=== PATIENT | male | born 1930 | race Caucasian/White ===

== ENCOUNTER 2021-11-16 14:25 | Inpatient (IN) | payer MEDICARE ==
[~2021-11-16] VITALS: Ht 182.9 cm; Wt 75.7 kg
[2021-11-16 14:50] VITALS: BP 138/75
[2021-11-16] MEDS ORDERED: METFORMIN HCL500 MG PO (15:49)
[2021-11-16] MEDS ORDERED: ARICEPT5 MG PO (15:49)
[2021-11-16] MEDS ORDERED: LISINOPRIL2.5 MG PO (15:49)
[2021-11-16] MEDS ORDERED: LEVOTHYROXINE50 MCG PO (15:49)
[2021-11-16] MEDS ORDERED: PROTONIX20 MG PO (15:49)
[2021-11-16] MEDS ORDERED: LASIX20 MG PO (15:49)
[2021-11-16] MEDS ORDERED: CITALOPRAM HBR20 MG PO (15:49)
[2021-11-16] MEDS ORDERED: CARVEDILOL3.125 MG PO (15:49)
[2021-11-16] MEDS ORDERED: MONTELUKAST SOD10 MG PO (15:49)
[2021-11-16] MEDS ORDERED: TYLENOL EXTRA500 MG PO (15:49)
[2021-11-16] MEDS ORDERED: LEVETIRACETAM500 MG PO (15:49)
[2021-11-16 16:37] LABS: BASOPHILS % 0.5 % (0.0-1.0); EOSINOPHILS # (AUTO) 0.1 (0.0-0.4); EOSINOPHILS % 1.5 % (0.0-6.0); HEMATOCRIT 43.7 % (38.2-49.6); HEMOGLOBIN 14.4 g/dL (14.0-18.0); LYMPHOCYTES # (AUTO) 1.1 (1.0-3.2); LYMPHOCYTES % 13.5 % (18.0-39.1); MEAN CORPUSCULAR HEMOGLOBIN 31.8 pg (28-32); MEAN CORPUSCULAR VOLUME 96.5 fL (81-99); MONOCYTES # (AUTO) 0.7 (0.2-0.8); MONOCYTES % 8.7 % (4.4-11.3); NEUTROPHILS # (AUTO) 5.9 (2.1-6.9); NEUTROPHILS % 75.4 % (38.7-80.0); PLATELET COUNT 176 x10e3/uL (140-360); RED BLOOD COUNT 4.53 x10e6/uL (4.3-5.7); RED CELL DISTRIBUTION WIDTH 13.1 % (11.7-14.4)
[2021-11-16 16:58] LABS: ALBUMIN/GLOBULIN RATIO 0.8 (0.8-2.0); ANION GAP 12.7 mmol/L (8-16); CALCIUM 8.9 mg/dL (8.4-10.2); CREATININE, SERUM 0.8 mg/dL (0.72-1.25); POTASSIUM 3.7 mmol/L (3.5-5.1)
[2021-11-16 17:10] VITALS: BP 138/75
[2021-11-16] MEDS ORDERED: ACETAMINOPHEN 325 MG TAB PO PRN (17:15)
[2021-11-16 20:00] VITALS: BP 120/74
[2021-11-16] MEDS: CITALOPRAM HYDROBROMIDE 20 MG TAB PO SCH (22:05)
[2021-11-16 22:56] VITALS: BP 120/74
[2021-11-16 23:46] VITALS: BP 158/85
[2021-11-17] VITALS (7 sets, daily range): BP systolic 121–153; BP diastolic 75–105
[2021-11-17] MEDS: LEVOTHYROXINE SODIUM 25 MCG TABLET PO SCH (05:20)
[2021-11-17] MEDS: MONTELUKAST SODIUM 10 MG TAB PO SCH (07:40)
[2021-11-17] MEDS: CARVEDILOL 12.5 MG TAB PO SCH (07:40)
[2021-11-17] MEDS: DONEPEZIL HCL 5 MG TAB PO SCH (07:40)
[2021-11-17] MEDS: LISINOPRIL 10 MG TAB PO SCH (07:40)
[2021-11-17] MEDS: PANTOPRAZOLE SOD 40 MG TABEC PO SCH (07:40)
[2021-11-17] MEDS: LEVETIRACETAM 500 MG TAB PO SCH (07:40)
[2021-11-17] MEDS: FUROSEMIDE 20 MG TAB PO SCH (07:40)
[2021-11-17] MEDS: METFORMIN HCL 500 MG TAB PO SCH (08:00)
[2021-11-17] MEDS ORDERED: LISINOPRIL 2.5 MG TAB PO SCH (09:00)
[2021-11-17] MEDS ORDERED: SODIUM CHLORIDE 0.9% 250ML 250 ML ONE (09:24)
[2021-11-17] MEDS: Vancomycin IV 1 GM in SODIUM CHLORIDE 0.9% 250ML 250 ML IV SCH (14:00)
[2021-11-17] MEDS: CITALOPRAM HYDROBROMIDE 20 MG TAB PO SCH (22:00)
[2021-11-18] VITALS (8 sets, daily range): BP systolic 110–149; BP diastolic 78–98
[2021-11-18] MEDS: Vancomycin IV 1 GM in SODIUM CHLORIDE 0.9% 250ML 250 ML IV SCH ×2 (01:43→14:00)
[2021-11-18] MEDS ORDERED: CEFEPIME HCL 1 GM VIAL ONE (04:50)
[2021-11-18] MEDS: LEVOTHYROXINE SODIUM 25 MCG TABLET PO SCH (06:18)
[2021-11-18] MEDS: PANTOPRAZOLE SOD 40 MG TABEC PO SCH (06:18)
[2021-11-18] MEDS: METFORMIN HCL 500 MG TAB PO SCH (08:00)
[2021-11-18] MEDS: CARVEDILOL 12.5 MG TAB PO SCH (09:00)
[2021-11-18] MEDS: FUROSEMIDE 20 MG TAB PO SCH (09:00)
[2021-11-18] MEDS: MONTELUKAST SODIUM 10 MG TAB PO SCH (09:00)
[2021-11-18] MEDS: LEVETIRACETAM 500 MG TAB PO SCH (09:00)
[2021-11-18] MEDS: DONEPEZIL HCL 5 MG TAB PO SCH (09:00)
[2021-11-18] MEDS: LISINOPRIL 10 MG TAB PO SCH (09:00)
[2021-11-18] MEDS: CITALOPRAM HYDROBROMIDE 20 MG TAB PO SCH (21:00)
[2021-11-18] MEDS ORDERED: SODIUM CHLORIDE 0.9% 250ML 250 ML ONE (21:43)
[2021-11-19] MEDS: Vancomycin IV 1 GM in SODIUM CHLORIDE 0.9% 250ML 250 ML IV SCH (02:00)
[2021-11-19 03:34] VITALS: BP 150/80
[2021-11-19] MEDS: LEVOTHYROXINE SODIUM 25 MCG TABLET PO SCH (05:22)
[2021-11-19] MEDS: PANTOPRAZOLE SOD 40 MG TABEC PO SCH (05:22)
[2021-11-19] MEDS: METFORMIN HCL 500 MG TAB PO SCH (07:46)
[2021-11-19 08:25] VITALS: BP 142/81
[2021-11-19 08:32] VITALS: BP 142/81
[2021-11-19] MEDS ORDERED: KETOROLAC TROMETHAMINE 30 MG/ML VIAL ONE (11:54)
[2021-11-19] MEDS ORDERED: ONDANSETRON HCL INJ 2MG/ML 2ML 2 MG/ML VIAL ONE (11:54)
[2021-11-19] MEDS ORDERED: POVIDONE IODINE 0.05% 0.05 % ML PO ONE (11:54)
[2021-11-19] MEDS ORDERED: PROPOFOL IV EMULSION 10 MG/ML 20 ML VIAL ONE (11:54)
[2021-11-19] MEDS ORDERED: LIDOCAINE HCL 2% LOCAL INJ 5 ML SDV VIAL INJ ONE (11:54)
[2021-11-19] MEDS ORDERED: SEVOFLURANE INHAL SOLN 250 ML PEN BTL ONE (11:54)
[2021-11-19 12:26] VITALS: BP 132/78
[2021-11-19] MEDS ORDERED: ACETAMINOPHEN/CODEINE 300MG - 30MG TAB PO PRN (16:30)
[2021-11-19] MEDS ORDERED: Morphine 2mg Syringe 2 MG/ML SYR IV PRN (16:30)
[2021-11-19] MEDS ORDERED: PHENAZOPYRIDINE HCL 100 MG TAB PO ONE (17:00)
[2021-11-19] MEDS ORDERED: BACITRACIN ZINC 15 GM OINT ONE (17:55)
[2021-11-19] MEDS ORDERED: FENTANYL CITRATE/PF 100MCG/2 ML INJ ONE (18:35)
[2021-11-19] MEDS: MONTELUKAST SODIUM 10 MG TAB PO SCH (18:40)
[2021-11-19] MEDS: CARVEDILOL 12.5 MG TAB PO SCH (18:40)
[2021-11-19] MEDS: LISINOPRIL 10 MG TAB PO SCH (18:40)
[2021-11-19] MEDS: LEVETIRACETAM 500 MG TAB PO SCH (18:40)
[2021-11-19] MEDS: DONEPEZIL HCL 5 MG TAB PO SCH (18:40)
[2021-11-19] MEDS: FUROSEMIDE 20 MG TAB PO SCH (18:40)
[2021-11-19 19:50] VITALS: BP 146/62
[2021-11-19 21:00] VITALS: BP 146/62
[2021-11-19] MEDS: CITALOPRAM HYDROBROMIDE 20 MG TAB PO SCH (21:00)
[2021-11-20] VITALS (8 sets, daily range): BP systolic 99–112; BP diastolic 59–76
[2021-11-20] MEDS: LEVOTHYROXINE SODIUM 25 MCG TABLET PO SCH (05:58)
[2021-11-20 07:01] LABS: BASOPHILS % 0.4 % (0.0-1.0); EOSINOPHILS # (AUTO) 0.1 (0.0-0.4); EOSINOPHILS % 1.1 % (0.0-6.0); HEMATOCRIT 42.5 % (38.2-49.6); HEMOGLOBIN 13.8 g/dL (14.0-18.0); LYMPHOCYTES # (AUTO) 0.9 (1.0-3.2); LYMPHOCYTES % 8.4 % (18.0-39.1); MEAN CORPUSCULAR HEMOGLOBIN 31.8 pg (28-32); MEAN CORPUSCULAR HGB CONC 32.5 g/dL (31-35); MEAN CORPUSCULAR VOLUME 97.9 fL (81-99); MONOCYTES # (AUTO) 0.8 (0.2-0.8); NEUTROPHILS # (AUTO) 8.3 (2.1-6.9); NEUTROPHILS % 81.7 % (38.7-80.0); PLATELET COUNT 218 x10e3/uL (140-360); RED BLOOD COUNT 4.34 x10e6/uL (4.3-5.7); RED CELL DISTRIBUTION WIDTH 12.7 % (11.7-14.4)
[2021-11-20 07:16] LABS: ANION GAP 14.7 mmol/L (8-16); CALCIUM 8.5 mg/dL (8.4-10.2); CREATININE, SERUM 0.81 mg/dL (0.72-1.25); POTASSIUM 3.7 mmol/L (3.5-5.1)
[2021-11-20] MEDS: PANTOPRAZOLE SOD 40 MG TABEC PO SCH (07:30)
[2021-11-20] MEDS: CARVEDILOL 12.5 MG TAB PO SCH (08:55)
[2021-11-20] MEDS ORDERED: Vancomycin IV 1 GM in SODIUM CHLORIDE 0.9% 250ML 250 ML IV SCH (09:00)
[2021-11-20] MEDS: DONEPEZIL HCL 5 MG TAB PO SCH (09:40)
[2021-11-20] MEDS: METFORMIN HCL 500 MG TAB PO SCH (09:40)
[2021-11-20] MEDS: LISINOPRIL 10 MG TAB PO SCH (09:41)
[2021-11-20] MEDS: MONTELUKAST SODIUM 10 MG TAB PO SCH (09:41)
[2021-11-20] MEDS: FUROSEMIDE 20 MG TAB PO SCH (09:41)
[2021-11-20] MEDS: LEVETIRACETAM 500 MG TAB PO SCH (09:41)
[2021-11-20] MEDS: NEOMYCIN/POLYMYXIN/BACITRACIN 15 GM TUBE TOP SCH (17:00)
[2021-11-20] MEDS: DOXYCYCLINE HYCLATE TABLET 100 MG TAB PO SCH (17:29)
[2021-11-20] MEDS: CIPROFLOXACIN 500 MG TAB PO SCH (17:29)
[2021-11-20] MEDS: CITALOPRAM HYDROBROMIDE 20 MG TAB PO SCH (20:08)
[2021-11-21] VITALS: BP 123/59
[2021-11-21 04:00] VITALS: BP 130/63
[2021-11-21] MEDS: LEVOTHYROXINE SODIUM 25 MCG TABLET PO SCH (05:09)
[2021-11-21 06:50] LABS: BASOPHILS # (AUTO) 0.1 (0.0-0.1); BASOPHILS % 0.7 % (0.0-1.0); EOSINOPHILS # (AUTO) 0.2 (0.0-0.4); EOSINOPHILS % 2.4 % (0.0-6.0); HEMATOCRIT 41.5 % (38.2-49.6); HEMOGLOBIN 13.4 g/dL (14.0-18.0); LYMPHOCYTES # (AUTO) 0.8 (1.0-3.2); LYMPHOCYTES % 9.8 % (18.0-39.1); MEAN CORPUSCULAR HEMOGLOBIN 31.5 pg (28-32); MEAN CORPUSCULAR HGB CONC 32.3 g/dL (31-35); MEAN CORPUSCULAR VOLUME 97.6 fL (81-99); MONOCYTES # (AUTO) 0.7 (0.2-0.8); MONOCYTES % 8.9 % (4.4-11.3); NEUTROPHILS # (AUTO) 5.9 (2.1-6.9); NEUTROPHILS % 77.8 % (38.7-80.0); PLATELET COUNT 198 x10e3/uL (140-360); RED BLOOD COUNT 4.25 x10e6/uL (4.3-5.7); RED CELL DISTRIBUTION WIDTH 13.1 % (11.7-14.4)
[2021-11-21 07:13] LABS: ANION GAP 12.4 mmol/L (8-16); CALCIUM 8.5 mg/dL (8.4-10.2); CREATININE, SERUM 0.79 mg/dL (0.72-1.25); POTASSIUM 3.4 mmol/L (3.5-5.1)
[2021-11-21 08:09] VITALS: BP 124/59
[2021-11-21] MEDS: CIPROFLOXACIN 500 MG TAB PO SCH ×2 (10:10→16:00)
[2021-11-21] MEDS: METFORMIN HCL 500 MG TAB PO SCH (10:10)
[2021-11-21] MEDS: DONEPEZIL HCL 5 MG TAB PO SCH (10:10)
[2021-11-21] MEDS: PANTOPRAZOLE SOD 40 MG TABEC PO SCH (10:10)
[2021-11-21] MEDS: LEVETIRACETAM 500 MG TAB PO SCH (10:11)
[2021-11-21] MEDS: CARVEDILOL 12.5 MG TAB PO SCH (10:11)
[2021-11-21] MEDS: DOXYCYCLINE HYCLATE TABLET 100 MG TAB PO SCH ×2 (10:11→16:00)
[2021-11-21] MEDS: MONTELUKAST SODIUM 10 MG TAB PO SCH (10:11)
[2021-11-21] MEDS: LISINOPRIL 10 MG TAB PO SCH (10:11)
[2021-11-21] MEDS: FUROSEMIDE 20 MG TAB PO SCH (10:11)
[2021-11-21] MEDS: NEOMYCIN/POLYMYXIN/BACITRACIN 15 GM TUBE TOP SCH ×2 (10:18→16:00)
[2021-11-21 11:30] VITALS: BP 121/55
[2021-11-21 15:59] VITALS: BP 117/59
[2021-11-21 20:00] VITALS: BP 134/56
[2021-11-21] MEDS: CITALOPRAM HYDROBROMIDE 20 MG TAB PO SCH (21:55)
[2021-11-22] VITALS: BP 127/65
[2021-11-22] MEDS: LEVOTHYROXINE SODIUM 25 MCG TABLET PO SCH (06:00)
[2021-11-22 08:00] VITALS: BP 126/50
[2021-11-22] MEDS: NEOMYCIN/POLYMYXIN/BACITRACIN 15 GM TUBE TOP SCH ×2 (09:00→17:00)
[2021-11-22] MEDS ORDERED: POTASSIUM CHLORIDE 20 MEQ TAB CR PO ONE (09:30)
[2021-11-22 10:18] LABS: ANION GAP 11.7 mmol/L (8-16); CALCIUM 8.9 mg/dL (8.4-10.2); CREATININE, SERUM 0.7 mg/dL (0.72-1.25); POTASSIUM 3.7 mmol/L (3.5-5.1)
[2021-11-22] MEDS: CARVEDILOL 12.5 MG TAB PO SCH (11:00)
[2021-11-22] MEDS: CIPROFLOXACIN 500 MG TAB PO SCH ×2 (11:00→18:11)
[2021-11-22] MEDS: DOXYCYCLINE HYCLATE TABLET 100 MG TAB PO SCH ×2 (11:00→18:11)
[2021-11-22] MEDS: DONEPEZIL HCL 5 MG TAB PO SCH (11:00)
[2021-11-22] MEDS: MONTELUKAST SODIUM 10 MG TAB PO SCH (11:00)
[2021-11-22] MEDS: LEVETIRACETAM 500 MG TAB PO SCH (11:00)
[2021-11-22] MEDS: METFORMIN HCL 500 MG TAB PO SCH (11:00)
[2021-11-22] MEDS: LISINOPRIL 10 MG TAB PO SCH (11:00)
[2021-11-22] MEDS: FUROSEMIDE 20 MG TAB PO SCH (11:00)
[2021-11-22] MEDS: PANTOPRAZOLE SOD 40 MG TABEC PO SCH (11:00)
[2021-11-22 12:00] VITALS: BP 159/77
[2021-11-22 16:00] VITALS: BP 126/64
[2021-11-22 20:26] VITALS: BP 119/57
== END 2021-11-22 22:13 | DRG 663 ==
LOC: MED/SURG2 15:19
PROVIDERS: ADMIT Internal Medicine; ATTEND Internal Medicine
PROC: 0TQD0ZZ Repair Urethra, Open Approach (ICD-10-PCS; 2021-11-19)
PROC: 0VTTXZZ Resection of Prepuce, External Approach (ICD-10-PCS; 2021-11-19)
PROC: 0VPS0JZ Removal of Synthetic Substitute from Penis, Open Approach (ICD-10-PCS; principal; 2021-11-19 16:32)
DX: T83.89XA Other specified complication of genitourinary prosthetic devices, implants and grafts, initial encounter (principal); F03.91 Unspecified dementia, unspecified severity, with behavioral disturbance; T81.31XA Disruption of external operation (surgical) wound, not elsewhere classified, initial encounter; Y73.2 Prosthetic and other implants, materials and accessory gastroenterology and urology devices associated with adverse incidents; R56.9 Unspecified convulsions; K21.9 Gastro-esophageal reflux disease without esophagitis; E03.9 Hypothyroidism, unspecified; E87.6 Hypokalemia; G40.909 Epilepsy, unspecified, not intractable, without status epilepticus; I11.0 Hypertensive heart disease with heart failure; I50.9 Heart failure, unspecified; Z20.822 Contact with and (suspected) exposure to COVID-19; R39.81 Functional urinary incontinence; N31.8 Other neuromuscular dysfunction of bladder; Z85.46 Personal history of malignant neoplasm of prostate; K42.9 Umbilical hernia without obstruction or gangrene
CPT/HCPCS: 36415; 80048; 80053; 80202; 82140; 82948; 83735; 85025; 88300; 94799; 96360; 97139; 99251; J0692; J0696; J1885; J2001; J2405; J3010; J3370; J7050; U0002